=== PATIENT | female | born 1980 | race Caucasian/White ===

== ENCOUNTER 2020-01-24 14:44 | Outpatient (CLI) | payer OTHER, SELFPAY ==
--- NOTE | ~2020-01-24 | US_ITS ---
US thyroid INDICATION: Hypothyroidism TECHNIQUE: Real-time sonographic images of the thyroid gland were obtained. COMPARISON: 01/06/2019 FINDINGS: The right thyroid lobe measures 3.7 x 1.8 x 0.8 cm. The left thyroid lobe measures 3.7 x 1 .4 x 1 cm. There is normal echotexture and echogenicity throughout the thyroid gland. No discrete nod ules identified. Normal vascular flow is present. IMPRESSION: 1. Atrophic thyroid gland without discrete mass. Reviewed, dictated and finalized at location A.
== END 2020-01-24 14:45 | disposition home or self-care (01) ==
PROVIDERS: PCP Family Medicine; Visit Provider Family Medicine
DX: E04.1 Nontoxic single thyroid nodule (principal)
CPT/HCPCS: 76536

== ENCOUNTER 2020-06-27 09:33 | Emergency (ER) | payer OTHER, SELFPAY ==
--- NOTE | ~2020-06-27 | XR_ITS ---
EXAMINATION: XR chest 1V portable DATE: 06/27/2020 10:43 INDICATION: Chest pressure. Hypotension. TECHNIQUE: frontal view of the chest was obtained. COMPARISON: None FINDINGS: The lungs are clear with no focal airspace opacities, pulmonary edema, pleural effusion or pneumothor ax. The cardiomediastinal silhouette is normal. Visualized bones and soft tissues are unremarkable. IMPRESSION: 1. No acute cardiopulmonary disease. Reviewed, dictated and finalized at location A. L DIE ENGRAVER
[2020-06-27 09:47] VITALS: BP 141/84; PULSE 120; RESP 17; TEMP 36.6; O2SAT 100
--- NOTE | 2020-06-27 10:20 | ECG_ITS ---
Measurements Intervals Coulter Rate: 93 P: 58 OK: 141 QRS: 74 QRSD: 98 T: 40 QT: 378 QTc: 472 Interpretive Statements SINUS RHYTHM WITH SINUS ARRHYTHMIA POSSIBLE LEFT ATRIAL ENLARGEMENT BASELINE WANDER- II, AVF, V5-V6 BORDERLINE ECG Electronically Signed On 06-27-2020 16:02:39 MATTE CUTTER by Nirav Avila D.O.
[2020-06-27 10:37] LABS: Basophils Percent Auto 0.6 % (0.2-1.2); Eosinophils Absolute Auto 0.1 K/mm3 (0-0.3); Hematocrit 42.3 % (37.0-47.0); Hemoglobin 14.1 g/dL (12.0-15.0); Immature Granulocyte Absolute 0.02 K/mm3 (0.00-0.031); Immature Granulocyte Percent A 0.4 % (0-0.5); Lymphocytes Absolute Auto 1.69 K/mm3 (0.9-3.2); Lymphocytes Percent Auto 31.4 % (18.3-44.2); Mean Corpuscular HGB Conc 33.3 g/dl (32-36); Mean Corpuscular Hemoglobin 33.1 pg (26-34); Mean Corpuscular Volume 99.3 fl (80-100); Mean Platelet Volume 11.7 fl (7.4-10.4); Monocytes Absolute Auto 0.3 K/mm3 (0.1-0.6); Monocytes Percent Auto 5.8 % (2.6-8.5); Neutrophils Absolute Auto 3.2 K/mm3 (1.3-6.7); Neutrophils Percent Auto 59.8 % (45.5-73.1); Platelet Count Result 179 k/mm3 (150-375); Red Blood Count 4.26 M/mm3 (4.2-5.4); Red Cell Distribution Width 12.8 % (11.5-14.5); White Blood Count 5.4 K/mm3 (4.5-10.0)
[2020-06-27] MEDS: SODIUM CHLORIDE 0.9% IV 1,000 ML 999 ML IV CONT (10:37)
--- NOTE | 2020-06-27 10:44 | ED.GENADULT ---
HPI - General Adult General Chief complaint: Chest Pain Stated complaint: Chest Tightness Time Seen by Provider: 06/27/20 09:40 Source: patient Mode of arrival: ambulatory Limitations: no limitations History of Present Illness HPI narrative: Patient is a 39 year old female who presents for evaluation of heart racing and chest pain. Patient received her COVID vaccination on Monday. She states since then she has felt anxious and heart racing. She reports she has felt tremulous as well. She states yesterday she developed midsternal nonradiating chest pressure. This is not worsened with exertion. She denies associated fever, chills, nausea, vomiting, abdominal or cough. She reports she is extremely anxious. Related Data Home Medications Medication Instructions Recorded Confirmed calcium carbonate 500 mg calcium 500 mg PO DAILY 04/08/19 06/16/20 (1,250 mg) tablet multivitamin 1 tablet PO DAILY 04/08/19 06/16/20 omega 6-ios-syh-fish oil 1,000 mg 1 cap PO DAILY 04/08/19 06/16/20 (120 mg-180 mg) capsule Allergies Allergy/AdvReac Type Severity Reaction Status Date / Time guaifenesin Allergy Hives Verified 04/08/19 11:27 Review of Systems Review of Systems: All systems reviewed & are unremarkable except as noted in HPI and below PMFSH Past Medical History Medical History Anxiety Depression Israel's thyroiditis Hypothyroidism (acquired) Migraine Thyroid disease Family History Family History Father Family history of thyroid disease Family history of alcoholism Mother Family history of thyroid disease Family history of osteoporosis Family history of migraine headaches Family history of mental disorder Family history of arthritis Sibling Family history of thyroid disease Family history of mental disorder Depression Family history of alcoholism Grandparent Family history of osteoporosis Family history of malignant neoplasm Carcinoma of colon Family history of type 2 diabetes mellitus Social History Social History Smoking status: Never smoker Alcohol intake: current Exam Const: General: no acute distress and alert Orientation/consciousness: patient oriented x3 HENMT: Head: normocephalic and atraumatic Face and sinus: face symmetric Eyes: EOM: EOMs intact bilaterally Chest: Chest palpation & inspection: normal inspection of the chest Resp: Effort & Inspection: normal respiratory effort and no retractions Auscultation: clear to auscultation bilaterally Cardio: Rate: abnormal rate and tachycardic Rhythm: regular rhythm Heart sounds: no murmurs GI: GI Palp: Yes Soft to palpation, No Tenderness to palpation present (GI) and No Guarding due to palpation present (GI) Auscultation: normal bowel sounds Back/Spine/Pelvis: Back: no CVA tenderness Skin: General skin exam: normal color Rashes: no rashes Neuro: General: patient oriented x3, moves all extremities and CN's II-XI intact bilaterally Extrem: General: normal to inspection and no pedal edema Psych: Mental Status: mental status grossly normal Affect: Anxious affect present Course Reevaluation(s) Reevaluation #1: I reviewed labs with patient and her family. Labs and xray are unremarkable. She states she feels better. She declines any additional medication. I offered anxiety medication. Date: 06/27/20 Time: 14:15 Vital Signs Vital signs: Vital Signs Temperature 97.9 F 06/27/20 09:47 Pulse Rate 120 H 06/27/20 09:47 Respiratory Rate 17 06/27/20 09:47 Blood Pressure 141/84 H 06/27/20 09:47 Pulse Oximetry 100 06/27/20 09:47 Temperature 97.8 F 06/27/20 12:49 Pulse Rate 98 06/27/20 12:49 Respiratory Rate 11 L 06/27/20 12:49 Blood Pressure 108/65 06/27/20 12:49 Pulse Oximetry 100 06/27/20 12:49 Medical De
[2020-06-27 10:46] LABS: INR 0.9; Prothrombin Time 13.2 Seconds (11.1-14.7)
[2020-06-27 10:47] LABS: Partial Thromboplastin Time 25.2 SECONDS (22.3-36.8)
[2020-06-27 10:49] LABS: Alanine Aminotransferase 17 U/L (4-35); Albumin Level 4.4 g/dL (3.5-5.1); Alkaline Phosphatase 48 U/L (38-126); Anion Gap 4 mmol/L (8-16); Aspartate Amino Transferase 25 U/L (14-36); Bilirubin,Total 0.4 mg/dL (0.2-1.3); Blood Urea Nitrogen 8 mg/dL (7-17); Calcium 9.4 mg/dL (8.4-10.2); Carbon Dioxide 27 mmol/L (22-30); Chloride 104 mmol/L (98-107); Estimated CRCL calculation 92 ml/min; Estimated Glomerular Filt Rate > 60; Glucose 98 mg/dL (65-105); Lipase 90 U/L (23-300); Magnesium 1.8 mg/dL (1.6-2.3); Potassium 3.6 mmol/L (3.4-5.0); Sodium 135 mmol/L (137-145)
[2020-06-27 10:50] LABS: D Dimer 0.27 ug/mL (<0.48)
[2020-06-27 11:00] LABS: Troponin I < 0.012 ng/mL (0.000-0.034)
[2020-06-27 11:25] LABS: Add Urine Microscopic? YES; Appearance Urine Clear (Clear); Bacteria Urine Trace /hpf; Bilirubin Urine Negative (Negative); Blood Urine Negative (Negative); Color Urine Colorless (Yellow); Glucose Urine UA Negative (Negative); Ketones Urine Trace mg/dL (Negative); Leukocyte Esterase Ur Negative LEU/UL (Negative); Nitrate Urine Negative (Negative); Protein Urine Negative (Negative); RBC Urine 0-2 /hpf (0-2); Squamous Epithelial Cell Urine Rare /hpf (Few); Urobilinogen Urine Negative mg/dL (<2.0); WBC Urine 0-3 /hpf
[2020-06-27 11:42] LABS: Specific Grav Ur 1.003 (1.001-1.035)
[2020-06-27 12:49] VITALS: BP 108/65; PULSE 98; RESP 11; TEMP 36.6; O2SAT 100
[2020-06-27 13:59] LABS: Troponin I < 0.012 ng/mL (0.000-0.034)
[2020-06-27 14:15] VITALS: BP 124/73; PULSE 96; RESP 20; TEMP 36.6; O2SAT 100
== END 2020-06-27 14:32 | disposition home or self-care (01) ==
PROVIDERS: Emergency Provider General Practice; PCP Family Medicine
DX: R07.9 Chest pain, unspecified (principal); F41.9 Anxiety disorder, unspecified; E06.3 Autoimmune thyroiditis; R94.31 Abnormal electrocardiogram [ECG] [EKG]
CPT/HCPCS: 36415; 71045; 80053; 81001; 81025; 83690; 83735; 84443; 84484; 85025; 85380; 85610; 85730; 93005; 96360; 99284; J7030

== ENCOUNTER → 2021-06-23 13:03 | Outpatient (CLI) | payer OTHER, SELFPAY ==
--- NOTE | ~2021-06-23 | US_ITS ---
EXAMINATION: US pelvic complete DATE: 06/23/2021 13:23 INDICATION: Pelvic and perineal pain Comparison:No prior studies for comparison. TECHNIQUE: Multiple transabdominal and endovaginal sonographic images of the pelvis performed. FINDINGS: The uterus measures 8.9 x 3.4 x 4.8 cm. The endometrial complex measures 4 mm. The right ovary measures 2.6 x 1.9 x 2.9 cm and the left ovary measures 3.3 x 2.2 x 2.8 cm. There ar e small follicles in each ovary. Normal doppler signal in both ovaries. There is no free fluid in the pelvis. There are no abnormal masses seen on either side. IMPRESSION: 1. Normal pelvic ultrasound. Reviewed, dictated and finalized at location B. ER DOWN
== END ==
PROVIDERS: PCP Family Medicine; Visit Provider Family Medicine
DX: R10.2 Pelvic and perineal pain (principal)
CPT/HCPCS: 76856

== ENCOUNTER 2021-10-12 12:52 | Emergency (ER) | payer OTHER, SELFPAY ==
--- NOTE | ~2021-10-12 | CT_ITS ---
EXAMINATION: CT brain wo con DATE: 10/12/2021 15:57 INDICATION: Dizziness. TECHNIQUE: Computed tomography (CT) of the head was performed without intravenous contrast. The mA wa s adjusted according to patient size. Iterative reconstruction technique was employed. The dose-lengt h product was 529.67 mGy-cm. COMPARISON: None FINDINGS: There is no intracranial hemorrhage, acute infarction, or abnormal intracranial mass lesion . The ventricles are normal in size. The paranasal sinuses are clear. The mastoid air cells are bryan l. IMPRESSION: 1. Normal brain. Reviewed, dictated and finalized at location B. IMPRESSION: 1. Normal brain.
--- NOTE | ~2021-10-12 | XR_ITS ---
EXAMINATION: XR chest 2V DATE: 10/12/2021 14:26 INDICATION: Chest pain. Dizziness. COVID-19 positive. TECHNIQUE: Frontal and lateral views of the chest were obtained. COMPARISON: Chest single view 06/27/2020 FINDINGS: The chest demonstrates clear lungs without pneumonia, pleural effusion, or pneumothorax. Th e heart size is normal. IMPRESSION: 1. No acute cardiopulmonary disease. Reviewed, dictated and finalized at location B.
--- NOTE | 2021-10-12 12:55 | PC.NURSE ---
pt and family made aware that since pt is within 2 weeks of covid positive test date that she cannot have any visitors. pt started crying in department and sitting out in vestibule with family.
--- NOTE | 2021-10-12 13:16 | ECG_ITS ---
Measurements Intervals [place]age Rate: 88 P: 69 CT: 125 QRS: 90 QRSD: 101 T: 49 QT: 342 QTc: 415 Interpretive Statements SINUS RHYTHM NORMAL ECG Electronically Signed On 10-12-2021 13:57:09 CDT by Nirav Avila D.O.
[2021-10-12 13:17] VITALS: BP 114/87; PULSE 88; RESP 18; TEMP 36.9; O2SAT 100
[2021-10-12 13:36] LABS: Basophils Percent Auto 0.3 % (0.2-1.2); Eosinophils Absolute Auto 0.1 K/mm3 (0-0.3); Eosinophils Percent Auto 1.4 % (0-4.4); Hematocrit 43.9 % (37.0-47.0); Hemoglobin 14.2 g/dL (12.0-15.0); Immature Granulocyte Absolute 0.01 K/mm3 (0.00-0.031); Immature Granulocyte Percent A 0.2 % (0-0.5); Lymphocytes Absolute Auto 1.43 K/mm3 (0.9-3.2); Lymphocytes Percent Auto 22.2 % (18.3-44.2); Mean Corpuscular HGB Conc 32.3 g/dl (32-36); Mean Corpuscular Hemoglobin 32.1 pg (26-34); Mean Corpuscular Volume 99.3 fl (80-100); Mean Platelet Volume 11.8 fl (7.4-10.4); Monocytes Absolute Auto 0.3 K/mm3 (0.1-0.6); Monocytes Percent Auto 4.2 % (2.6-8.5); Neutrophils Absolute Auto 4.6 K/mm3 (1.3-6.7); Neutrophils Percent Auto 71.7 % (45.5-73.1); Platelet Count Result 167 k/mm3 (150-375); Red Blood Count 4.42 M/mm3 (4.2-5.4); Red Cell Distribution Width 13.2 % (11.5-14.5); White Blood Count 6.5 K/mm3 (4.5-10.0)
[2021-10-12 13:47] LABS: Alanine Aminotransferase 22 U/L (6-35); Alkaline Phosphatase 55 U/L (38-126); Anion Gap 10 mmol/L (8-16); Aspartate Amino Transferase 27 U/L (14-36); Bilirubin,Total 0.4 mg/dL (0.2-1.3); Blood Urea Nitrogen 9 mg/dL (7-17); Calcium 9.5 mg/dL (8.4-10.2); Carbon Dioxide 23 mmol/L (22-30); Chloride 107 mmol/L (98-107); Estimated CRCL calculation 92 ml/min; Estimated Glomerular Filt Rate > 60; Glucose 92 mg/dL (65-110); INR 1.2; Lipase 112 U/L (23-300); Potassium 3.8 mmol/L (3.4-5.0); Prothrombin Time 14.3 Seconds (11.1-14.7); Sodium 140 mmol/L (137-145)
[2021-10-12 13:48] LABS: Partial Thromboplastin Time 30.6 SECONDS (22.3-36.8)
[2021-10-12 13:58] LABS: Troponin I < 0.012 ng/mL (0.000-0.034)
[2021-10-12 15:24] VITALS: BP 131/82; PULSE 86; RESP 18; O2SAT 98
--- NOTE | 2021-10-12 15:41 | ED.DIZZY ---
HPI - Dizziness General Chief Complaint: Dizziness Stated Complaint: dizziness/leg swelling/anxiety Time Seen by Provider: 10/12/21 15:41 Source: patient Mode of arrival: ambulatory Limitations: no limitations History of Present Illness HPI Narrative: Patient is a 40 years old white female presented to the ED complaining of dizziness, left chest pain, muscle ache, feeling of swelling since she had COVID infection September 30, tested positive on October 01. Most of the symptoms are resolved except the intermittent chest pain and dizziness. History of [place], patient feels stressed. Related Data Allergies Allergy/AdvReac Type Severity Reaction Status Date / Time guaifenesin Allergy Hives Verified 06/29/21 14:15 valacyclovir Allergy livedo Verified 06/29/21 14:15 reticularis Review of Systems Review of Systems: All systems reviewed & are unremarkable except as noted in HPI and below PMFSH Past Medical History Medical History Anxiety Depression Israel's thyroiditis Hypothyroidism (acquired) Migraine Thyroid disease Family History Family History Father Family history of thyroid disease Family history of alcoholism Mother Family history of thyroid disease Family history of osteoporosis Family history of migraine headaches Family history of mental disorder Family history of arthritis Sibling Family history of thyroid disease Family history of mental disorder Depression Family history of alcoholism Grandparent Family history of osteoporosis Family history of malignant neoplasm Carcinoma of colon Family history of type 2 diabetes mellitus Social History Social History Second hand tobacco smoke exposure: No Alcohol intake: current Alcohol use details: 1-2 drinks daily Exam Narrative: General appearance: Well-developed, well-nourished Skin: Normal color Head: Normocephalic, nontraumatic Eyes: Clear conjunctiva ENT: Oropharynx normal, ears normal, nose normal Neck: Supple, nontender Chest and respiratory: Airway patent, no respiratory distress, no accessory muscle use Heart: Regular rate/rhythm Abdomen: Soft, nontender, no organomegaly, quiet bowel sounds Vascular: Normal peripheral pulses, normal capillary refill. Musculoskeletal: Normal range of motion, nontender back Neurologic: Alert and oriented ?3, MDM SR is normal as tested, no gross motor deficit Course Course Emergency Course: I believe patient's symptoms is secondary to COVID infection which is lingering plus and anxiety like symptoms. Patient agreed that she is very anxious lately. Work-up did not show any significant findings to explain her symptoms. Vital Signs Vital signs: Vital Signs Temperature 36.9 C 10/12/21 13:17 Pulse Rate 88 10/12/21 13:17 Respiratory Rate 18 10/12/21 13:17 Blood Pressure 114/87 10/12/21 13:17 Pulse Oximetry 100 10/12/21 13:17 Temperature 36.9 C 10/12/21 13:17 Pulse Rate 101 H 10/12/21 16:35 Respiratory Rate 18 10/12/21 16:35 Blood Pressure 131/82 10/12/21 15:24 Pulse Oximetry 98 10/12/21 16:35 MDM - Dizziness Lab Data Result diagrams: 10/12/21 13:30 10/12/21 13:30 Labs: Lab Results 10/12/21 10/12/21 10/12/21 Range/Units 13:30 13:30 13:30 WBC 6.5 (4.5-10.0) K/mm3 RBC 4.42 (4.2-5.4) M/mm3 Hgb 14.2 (12.0-15.0) g/dL Hct 43.9 (37.0-47.0) % MCV 99.3 (80-100) fl MCH 32.1 (26-34) pg MCHC 32.3 (32-36) g/dl RDW 13.2 (11.5-14.5) % Plt Count 167 (
[2021-10-12 16:13] LABS: D Dimer < 0.27 ug/mL (<0.48)
[2021-10-12 16:35] VITALS: PULSE 101; RESP 18; O2SAT 98
[2021-10-12 17:21] VITALS: PULSE 77; RESP 16; O2SAT 98
== END 2021-10-12 17:21 | disposition home or self-care (01) ==
PROVIDERS: Emergency Medicine; Emergency Provider Emergency Medicine; PCP Family Medicine
DX: U07.1 COVID-19 (principal); F41.9 Anxiety disorder, unspecified; E03.9 Hypothyroidism, unspecified; E06.3 Autoimmune thyroiditis
CPT/HCPCS: 36415; 70450; 71046; 80053; 83690; 84443; 84484; 85025; 85380; 85610; 85730; 93005; 99284

== ENCOUNTER → 2022-02-03 16:10 | Outpatient (CLI) | payer OTHER, SELFPAY ==
--- NOTE | ~2022-02-03 | MM_ITS ---
EXAMINATION: MM screening loal BI w ana paula HISTORY: Screening mammogram TECHNIQUE: Craniocaudal and mediolateral oblique 3-D tomosynthesis images were obtained and synthetic 2-D images were generated. CAD analysis was submitted and interpreted. COMPARISON: No prior mammogram is available for comparison at this institution. BREAST PARENCHYMAL COMPOSITION: The breasts are heterogeneously dense, which may obscure small masses . FINDINGS: There is no evidence of suspicious mass, calcification, or architectural distortion to sugg est malignancy in either breast. There has been no suspicious interval change. IMPRESSION: 1. No mammographic evidence of malignancy. 2. Recommend routine screening mammography in one year. BI-RADS Category 1: Negative Reviewed, dictated and finalized at location A.
== END ==
PROVIDERS: PCP Family Medicine; Visit Provider Family Medicine
DX: Z12.31 Encounter for screening mammogram for malignant neoplasm of breast (principal)
CPT/HCPCS: 77063; 77067

== ENCOUNTER → 2023-04-03 14:31 | Outpatient (CLI) | payer OTHER, SELFPAY ==
--- NOTE | ~2023-04-03 | MR_ITS ---
MRI of the brain Clinical History: Headache Technique: Axial and sagittal T1-weighted images were acquired. These were followed by axial T2-weigh silvano, diffusion weighted, gradient, and FLAIR images. Findings: No abnormal signal seen in the brain parenchyma. No acute infarct, intracranial hemorrhage, or mass lesion. Ventricles and subarachnoid spaces are unremarkable. Orbits are unremarkable. Paranasal sinuses and m astoid air cells are clear. Major intracranial flow voids are intact. Sagittal midline structures are intact. IMPRESSION: Unremarkable exam. Reviewed, dictated and finalized at location M. NKLER WORKER IMPRESSION: Unremarkable exam.
== END ==
PROVIDERS: PCP Family Medicine; Visit Provider Family Medicine
DX: R51.9 Headache, unspecified (principal)
CPT/HCPCS: 70551

== ENCOUNTER → 2023-04-05 15:14 | Outpatient (CLI) | payer OTHER, SELFPAY ==
--- NOTE | ~2023-04-05 | MM_ITS ---
EXAMINATION: MM screening lola BI w ana paula HISTORY: Screening TECHNIQUE: Craniocaudal and mediolateral oblique 3-D tomosynthesis images were obtained and synthetic 2-D images were generated. CAD analysis was submitted and interpreted. COMPARISON: 02/03/2022 BREAST PARENCHYMAL COMPOSITION: There are scattered areas of fibroglandular density. FINDINGS: There are nodular asymmetries in the periareolar location of the left breast. The right adriana ast is stable without evidence for malignancy. IMPRESSION: 1. Nodular asymmetries of the left breast in the periareolar location. 2. Additional mammographic views and possible breast ultrasound are recommended. BI-RADS Category 0: Incomplete: Needs additional imaging evaluation. Reviewed, dictated and finalized at location A. CING SUPERVISOR IMPRESSION: 1. Nodular asymmetries of the left breast in the periareolar location. 2. Additional mammographic views and possible breast ultrasound are recommended . BI-RADS Category 0: Incomplete: Needs additional imaging evaluation.
== END ==
PROVIDERS: PCP Family Medicine; Visit Provider Family Medicine
DX: Z12.31 Encounter for screening mammogram for malignant neoplasm of breast (principal); N64.89 Other specified disorders of breast; R92.8 Other abnormal and inconclusive findings on diagnostic imaging of breast
CPT/HCPCS: 77063; 77067

== ENCOUNTER 2023-04-26 13:02 | Outpatient (CLI) | payer OTHER, SELFPAY ==
--- NOTE | ~2023-04-26 | MMUS_ITS ---
EXAMINATION: MM diagnostic lola LT w ana paula, US breast LT complete HISTORY: Periareolar nodular asymmetries of left breast on 04/05/2023 screening mammogram TECHNIQUE: Additional 3-D tomosynthesis images of the left breast were performed and synthetic 2-D im ages were generated. CAD analysis was submitted and interpreted. High resolution complete left breast ultrasound examination including all 4 4 quadrants and subareolar area was performed. COMPARISON: 04/05/2023, 02/03/2022 bilateral screening mammogram examinations 09/02/2013 left complete breast ultrasound, reported negative FINDINGS: MAMMOGRAPHIC FINDINGS: Approximately 4.5 mm nodular density is suggested in the anterior inferomedial left breast on cranioc audal spot compression (). Additional small nodular left breast masses are not excluded.. ULTRASOUND: 6:00 subareolar area: There is an irregular and angular hypoechoic antiparallel lesion measuring appr oximately 5.2 mm depth, 3.3 mm width, with some posterior mild shadowing. Ultrasound-guided biopsy is recommended. No other suspicious mass or shadowing, cyst or other significant sonographic abnormality is detected. IMPRESSION: 1. Irregular angular antiparallel hypoechoic 5.2 x 3.3 mm lesion of left breast at 6:00 subareolar ar ea 2. Ultrasound-guided biopsy of left subareolar 6:00 lesion is recommended BI-RADS category 4, suspicious findings. Dr. Rivers telephoned the report and ultrasound-guided biopsy recommendation of left subareolar 6:00 le priscilla on 04/26/2023 at 1415 hours to [facility] voicemail. Reviewed, dictated and finalized at location A. PRINTER IMPRESSION: 1. Irregular angular antiparallel hypoechoic 5.2 x 3.3 mm lesion of left breast at 6:00 subareolar area 2. Ultrasound-guided biopsy of left subareolar 6:00 lesion is recommended BI-RADS category 4, suspicious findings. Dr. Rivers telephoned the report and ultrasound-guided biopsy recommendation of l eft subareolar 6:00 lesion on 04/26/2023 at 1415 hours to [facility] voicemail.
== END 2023-04-26 13:03 | disposition home or self-care (01) ==
LOC: ANHIMG 13:03
PROVIDERS: PCP Family Medicine; Visit Provider Family Medicine
DX: R92.8 Other abnormal and inconclusive findings on diagnostic imaging of breast (principal)
CPT/HCPCS: 76641; 77061; 77065; G0279

== ENCOUNTER 2023-05-03 09:07 | Outpatient (CLI) | payer OTHER, SELFPAY ==
--- NOTE | ~2023-05-03 | US_ITS ---
EXAMINATION: US breast LT limited HISTORY: Patient presents for biopsy of a sonographically detected left breast mass. TECHNIQUE: Limited left breast ultrasound is performed. FINDINGS: With real-time scanning, the sonographically detected abnormality identified for biopsy gerardo ears to blend in with background fibroglandular tissue and is less distinct. No additional suspicious sonographic features are identified. This was discussed with the patient and a course of six-month f ollow-up ultrasound was agreed upon. IMPRESSION: Probably benign left breast mass. Follow-up left breast ultrasound in six months is recommended. BI-RADS category 3, probably benign findings. Reviewed, dictated and finalized at location A. N BUILDING MATERIALS DESIGNER IMPRESSION: Probably benign left breast mass. Follow-up left breast ultrasound in six month s is recommended. BI-RADS category 3, probably benign findings.
== END 2023-05-03 09:08 | disposition home or self-care (01) ==
PROVIDERS: PCP Family Medicine; Visit Provider Family Medicine
DX: R92.8 Other abnormal and inconclusive findings on diagnostic imaging of breast (principal)
CPT/HCPCS: 76642

== ENCOUNTER 2024-12-10 08:01 | Emergency (ER) | payer OTHER, SELFPAY ==
--- NOTE | ~2024-12-10 | XR_ITS ---
XR knee LT min 4V Ordering provider: Debbie Sloan NP History: . injury . Comparison: None. FINDINGS: BONES: No acute fracture or dislocation. JOINT SPACES: Normal. SOFT TISSUES: Normal. IMPRESSION: No acute osseous abnormality left knee. Reviewed, dictated and finalized at location A.
--- NOTE | 2024-12-10 08:04 | ED_ITS ---
HPI - Extremity Injury (Lower) General Chief Complaint: Extremity Injury, Lower Stated Complaint: Left Knee Pain Time Seen by Provider: 12/10/24 08:17 Source: patient and RN notes reviewed Mode of arrival: ambulatory Limitations: no limitations History of Present Illness HPI Narrative: 44-year-old female presents concern for left knee pain. Reports yesterday she twisted her knee while playing pickleball. She reports she cannot straighten the knee fully or bend it fully. She reports pain with weight-bearing, she is trying not put weight on it. She has used ice and elevation. complaint: knee injury Related Data Allergies Allergy/AdvReac Type Severity Reaction Status Date / Time guaifenesin Allergy Hives Verified 12/10/24 08:16 valacyclovir Allergy livedo Verified 12/10/24 08:16 reticularis Review of Systems Review of Systems: CONSTITUTIONAL: Denies malaise, chills, sweats, or fever. SKIN: Denies rash or itching, open skin, laceration, abrasion, redness, warmth, swelling. MUSCULOSKELETAL: Reports left knee pain, limited ROM NEUROLOGIC: Denies numbness, weakness All systems reviewed & are unremarkable except as noted in HPI and below PMFSH Past Medical History Medical History Hypothyroidism (acquired) Israel's thyroiditis Depression Anxiety Thyroid disease Migraine Family History Family History Father Family history of thyroid disease Family history of alcoholism Mother Family history of thyroid disease Family history of osteoporosis Family history of migraine headaches Family history of mental disorder Family history of arthritis Sibling Family history of thyroid disease Family history of mental disorder Depression Family history of alcoholism Grandparent Family history of osteoporosis Family history of malignant neoplasm Carcinoma of colon Family history of type 2 diabetes mellitus Social History Social History Smoking status: Never smoker Second hand tobacco smoke exposure: No Alcohol intake: current Drinks per week: 12 Substance use: never Substance use type: does not use Do You Feel Safe in your Home?: Yes Lack of Transportation: No Lack of Food: Never True Current Housing: I Have Housing Concerned About Future Housing: No Difficulty Paying Gas/Electric Bills: No Difficulty Paying for Meds: No Currently Unemployed: No Education: Master's Degree or Higher Difficulty w/ Childcare or Family Care: No Comments At time of signature, agree with nursing past medical, surgical, social and family history. There is no relevant family history pertinent to the presenting complaint Exam Narrative: GENERAL: Well-appearing, well-nourished, and in no acute distress. HEAD: Normocephalic, atraumatic. EYES: PERRLA, conjunctivae clear NECK: Supple. CHEST: Speaks in full sentences. No respiratory distress. HEART: Regular rate and rhythm. Normal and equal peripheral pulses. EXTREMITIES: Left knee has grossly normal strength and sensation, limited normal range of motion with full flexion and extension. No edema or ecchymosis. Normal sensation with sensitivity to light touch and pain. No point tenderness. No open wounds, no skin tenting, no devitalized tissue or atrophy, no trophic changes, no obvious deformity, alignment normal, nearby joints and structures intact. Distal pulses palpable and equal bilaterally, skin warm, dry, pink. Capillary refill less than 3 seconds. SKIN: Warm, dry, no rash. NEURO: Alert and oriented x3. PSYCH: Normal mood and affect Course Course Emergency Course: Patient is aware of diagnosis, understands and agrees to treatment plan. Anticipatory guidance given. Patient agrees to follow-up as directed and is aware of reasons to seek care at the emergency department. Portions of this record may have been created with voice recognition software Level of Care: Express Care Visit Vital Signs Vital signs: Reviewed. MDM - Extremity Injury (Lower) MDM Narrative Medical decision making narrative: The patient was evaluated by myself in the express care. History is obtained from patient who is an independent historian and physical exam was performed.? Available medical records were reviewed at this time. ? Exam findings show no acute concerns or changes; patient is non-toxic appearing and is in no distress. Patient is appropriate for outpatient treatment and follow-up. ? I have evaluated and discussed social determinants of health with the patient that could potentially impact subsequent diagnosis and treatment plans. ? Patients injury and pain is consistent with musculoskeletal etiology. No signs of neurological or vascular compromise on exam. Compartments and tissues are soft without signs of compartment syndrome. Pain is felt appropriate for further evaluation on an outpatient basis. Imaging Data My impression: Images reviewed, interpreted by radiologist, agree, see report. Radiologist's impression: XR knee LT min 4V Ordering provider: Debbie Sloan NP History: . injury . Comparison: None. FINDINGS: BONES: No acute fracture or dislocation. JOINT SPACES: Normal. SOFT TISSUES: Normal. IMPRESSION: No acute osseous abnormality left knee. Critical Care Time Critical Care Time Critical Care Time: No Discharge Plan Discharge Clinical Impression: Knee sprain Patient Disposition: Home Condition: Stable Instructions: Knee Sprain (ED) Additional Instructions: Avoid activities that cause pain until the pain subsides. Ice to the area 20-30 minutes 4-6 times a day Elevate above heart Elastic wrap as directed for comfort for the next 5-7 days Tylenol for lesser pain Ibuprofen regularly for the next 2-3 days for the inflammation Follow up with your primary care provider if the condition is not improving within 1 week. If the condition worsens with numbness, tingling, decrease sensation with weakness seek treatment in the emergency room immediately. Patient Language: Latvian Prescriptions: No Action alprazolam 0.25 mg tablet 0.25 mg PO TID PRN (Reason: anxiety) Qty: 30 0RF sertraline 50 mg tablet 50 mg PO DAILY Qty: 90 3RF levothyroxine 88 mcg tablet 88 mcg PO DAILY Qty: 90 1RF Follow-up/Referrals: Keena Massey MD [Primary Care Provider] - Ugo Pichardo MD [Physician] - Stand Alone Forms: Work/School Release IP Time of Disposition: 09:04
[2024-12-10 08:10] VITALS: BP 110/79; PULSE 79; RESP 16; TEMP 36.6; O2SAT 100
== END 2024-12-10 09:09 | disposition home or self-care (01) ==
PROVIDERS: Emergency Provider Nurse Practitioner; PCP Family Medicine
DX: S83.92XA Sprain of unspecified site of left knee, initial encounter (principal); X50.1XXA Overexertion from prolonged static or awkward postures, initial encounter; E03.9 Hypothyroidism, unspecified; E06.3 Autoimmune thyroiditis; F41.9 Anxiety disorder, unspecified; F32.A Depression, unspecified
CPT/HCPCS: 73564; 99213; G0463

== ENCOUNTER 2024-12-19 12:42 | Outpatient (CLI) | payer OTHER, SELFPAY ==
--- NOTE | ~2024-12-19 | MR_ITS ---
EXAMINATION: MR knee LT wo con DATE: 12/19/2024 13:24 INDICATION: Left knee pain TECHNIQUE: Magnetic resonance imaging (MRI) of the left knee was performed without intravenous contra st. Sequences included axial PD-weighted FS FSE, coronal PD-weighted FSE and PD-weighted FS FSE, sagi ttal PD-weighted FSE, and sagittal T2-weighted FS FSE. COMPARISON: X-ray left knee 12/10/2024 FINDINGS: Medial compartment: Mild diffuse cartilage thinning. Minimal apical blunting of the body of the meniscus. Lateral compartment: Meniscus and cartilage intact. Patellofemoral compartment: Full-thickness cartilage fissures over the median ridge. Retinacula intact. Ligaments and tendons: Thickening and abnormal signal within the proximal ACL, with few intact fibers. The PCL, MCL, and LCL are intact. Remaining flexor and extensor tendons are intact. Fluid: Small volume joint fluid. Osseous/other: No suspicious focal or diffuse marrow signal. Small bone island in the LFC. Minimal abnormal signal i n the medial semimembranosus and gracilis at the musculotendinous junction, as can be seen with mild strain. IMPRESSION: High-grade partial versus complete ACL tear. Minimal apical blunting of the body, medial meniscus. Full-thickness cartilage fissures over the median ridge of the patella. Reviewed, dictated and finalized at location K.
== END 2024-12-19 12:43 | disposition home or self-care (01) ==
PROVIDERS: PCP Orthopaedic Surgery; Visit Provider Orthopaedic Surgery
DX: S83.512D Sprain of anterior cruciate ligament of left knee, subsequent encounter (principal); X58.XXXD Exposure to other specified factors, subsequent encounter
CPT/HCPCS: 73721